=== PATIENT | female | born 1995 | race Two or more races ===

== ENCOUNTER 2023-10-18 18:06 | Inpatient (IN) ==
[2023-10-18 18:33] LABS: Appearance Urine Cloudy (Clear); Bacteria Urine Automated None Seen (None Seen); Bilirubin Urine Negative (Negative); Blood Urine Negative (Negative); Cast Urine Automated 0-2 /lpf (0-2); Color Urine Yellow; Glucose Urine UA Negative (Negative); Ketones Urine Trace (Negative); Leukocyte Esterase Urine 2+ (Negative); Nitrite Urine Negative (Negative); Protein Urine Trace (Negative); Specific Gravity Urine 1.018 (1.000-1.030); Urobilinogen Urine Negative (Negative); pH Urine 6.5 (4.5-7.5)
[2023-10-18 18:47] LABS: Basophils # (auto) 0.01 K/uL (0.00-0.20); Basophils % (auto) 0.1 %; Eosinophils # (auto) 0.01 K/uL (0.00-0.50); Eosinophils % (auto) 0.1 %; Hematocrit (blood only) 35.8 % (37.0-47.0); Hemoglobin 10.8 g/dl (12.0-16.0); Immature Granulocytes # (auto) 0.04 K/uL (0.01-0.20); Immature Granulocytes % (auto) 0.4 %; Lymphocytes # (auto) 0.76 K/uL (1.20-3.40); Lymphocytes % (auto) 8.1 %; Mean Corpuscular Hemoglobin 22.2 pg (25.0-34.0); Mean Corpuscular Hgb Conc 30.2 g/dL (32.0-36.0); Mean Corpuscular Volume 73.5 fL (80.0-100.0); Monocytes % (auto) 6.4 %; Neutrophils # (auto) 7.93 K/uL (1.40-6.50); Neutrophils % (auto) 84.9 %; Platelet Count 225 K/uL (130-400); RDW Standard Deviation 45.1 fL (36.4-46.3); Red Blood Count 4.87 M/uL (4.20-5.40); White Blood Count 9.35 K/ul (4.8-10.8)
[2023-10-18 19:01] LABS: Pregnancy Test, Serum Negative (Negative)
[2023-10-18 19:07] LABS: Alanine Aminotransferase 6 U/L (7-52); Albumin Globulin Ratio 1.3 (0.9-2); Albumin Level 4.3 gm/dl (3.4-5.0); Alkaline Phosphatase 102 U/L (34-104); Anion Gap 7 (3-11); Aspartate Aminotransferase 12 U/L (13-39); BUN Creatinine Ratio 10.9 (10-20); Bilirubin,Total 0.9 mg/dl (0.2-1.0); Blood Urea Nitrogen 7 mg/dl (6-23); Calcium 9.4 mg/dl (8.6-10.3); Carbon Dioxide 24 mmol/L (21-32); Chloride 103 mmol/L (98-107); Creatinine Clr Calc Pharmacy 133.9 ml/min; Est GFR (African American) 138.8 ml/min; Est GFR (Non-African American) 119.7 ml/min; Globulin 3.3 gm/dl (2.5-4.0); Glucose 110 mg/dl (70-99(Fasting)); Lipase 3 U/L (11-82); Potassium 3.4 mmol/L (3.5-5.1); Sodium 134 mmol/L (136-145); Total Protein 7.6 gm/dl (6.0-8.3)
[2023-10-18] MEDS: ONDANSETRON INJ 2 MG/ML 2 ML VIAL IV STA ×2 (19:08→20:18)
[2023-10-18] MEDS: SODIUM CHLORIDE 0.9% 1,000 ML IV ONE ×2 (19:08→21:24)
[2023-10-18 19:09] LABS: Troponin I High Sensitivity < 2.3 pg/ml (0-14)
[2023-10-18 19:12] LABS: INR 1.1 (0.9-1.1); Prothrombin Time 12.3 Seconds (9.0-12.0)
--- NOTE | 2023-10-18 20:00 | XRay Report ---
KUB HISTORY: Generalized abdominal pain. COMPARISON: Abdomen and pelvis CT 10/17/2023. FINDINGS: The bowel gas pattern is unremarkable. There are no dilated loops of small bowel to suggest an obstruction. No renal calculi. No ureteral calculi. No pneumoperitoneum or pneumatosis. Mild-to- moderate fecal retention. IMPRESSION: 1. Nonobstructive bowel gas pattern. 2. [id number] fecal retention. ACT 112: Negative or not required by law. Electronically signed by: Jason Henning M.D. 10/18/2023 7:57 PM
--- NOTE | 2023-10-18 20:13 | Emergency Department Note ---
Impression & Plan Intractable abdominal pain ED Provider Note HISTORY OF PRESENT ILLNESS: Patient is a 28-year-old female presenting with abdominal pain. Her cousin over the phone acts as talent development consultant. Patient refused official talent development consultant, as she reports she speaks [place] and the talent development consultant does not work for her. Cousin on the phone reports the patient has been having abdominal pain for the last 3 days. She was seen in the emergency department last night and the pain has gotten significantly worse. She has not had a bowel movement in 12 to 13 days. She has been taking oxycodone every 8 hours for the last 3 days with minimal relief in her symptoms. Reports nausea and multiple episodes of vomiting. She has had 3 sections but no other abdominal surgical history. No reported fevers, but she reportedly has been having subjective chills. No dysuria or hematuria. ROS: as above PHYSICAL EXAM: Constitutional: Patient appears in no acute distress. HENT: Head: Normocephalic and atraumatic. Eyes: EOMI, PERRL Mouth/Throat: Mucous membranes moist. Neck: Trachea midline. Neck supple. Cardiovascular: Tachycardic with regular rhythm. No murmurs, rubs or gallops. Intact distal pulses. Pulmonary/Chest: No respiratory distress. Breath sounds clear and equal bilaterally. No wheezes or rales. Abdominal: Abdomen soft, no rebound or guarding. Diffuse tenderness to palpation. Musculoskeletal: No edema, tenderness or deformity noted. Skin: Warm and dry. No rash, erythema, pallor or cyanosis Psychiatric: Appropriate mood and affect for situation. Neurological: Alert and keenly responsive. CN II-XII grossly intact, moving all extremities equally and fully. MDM: - Vitals signs showed tachycardia. - History obtained via patient via her cousin. History as above. - Chronic conditions affecting care: Depression/anxiety - Differential diagnoses include, but are not limited to: Small bowel obstruction; constipation; cholecystitis; appendicitis; UTI; ureteral stone - Order placed for continuous cardiac monitoring. At this time, monitor showed rate of 99 bpm with normal sinus rhythm, per my interpretation. - External medical records reviewed. Patient CT imaging from yesterday was reviewed. Patient had a negative CT read per radiology. - Laboratory workup interpreted by myself showed normal WBC; normal PT; slight hypokalemia (K 3.4); normal lactate; normal troponin; normal lipase; negative hCG - CXR negative for pneumonia, per my interpretation - KUB negative for acute obstructive gas pattern. - UA negative for infection - Did discuss with the patient that she had normal workup yesterday including blood work and CT imaging. She states that "something must be wrong." Did discuss that there was really no clinical utility of a repeat CT imaging and would increase her risk of radiation exposure. However, the patient is reporting that her pain is worse and she would like imaging done. - CT abdomen/pelvis showed complex cystic structures within both adnexa which are stable compared to prior exam. - Patient was given 4 mg IV toradol and 1L NS on initial assessment. She was complaining of significant pain and further nausea and given 4 mg IV Zofran and 30 mg IV Toradol and additional 1 L normal saline. - Discussed results with the patient. Discussed plan for discharge home, but she reports that she is still having significant pain. She reports significant concern about going home after not having a bowel movement for 12 to 14 days. Discussed that she could try [id number] laxatives, but she states "these do not work." She is requesting admission for observation and "further testing." - Discussion was had with ed case manager about patient's case and need for admission - Hospitalist, Dr. Olivo, consulted for admission - Patient admitted to [facility] for further evaluation and management. ASSESSMENT AND PLAN: Diagnosis: Intractable abdominal pain Plan: Discharge Past Med/Surg History Problem List (Updated 10/18/23 @ 22:03 by Karen Worthington MD) Intractable abdominal pain (Acute) Abdominal pain (Acute) Psychosocial stressors Heartburn PTSD (post-traumatic stress disorder) Flank pain RUQ abdominal pain Yeast infection Ovarian cyst Vulvar itching Dysuria Routine gynecological examination Rib pain on left side Menorrhagia Pelvic pain LLQ abdominal pain Nausea Dental infection Toenail torn away GERD (gastroesophageal reflux disease) Back pain Depression with anxiety Medical History Infected tooth Miscarriage Depression Surgical History H/O section x3 Family History Father Myocardial infarction Mother Stomach pain FH: mental illness Denies family history of Ovarian cancer Prostate cancer Breast cancer Colorectal cancer Social History Smoking Status: Never smoker Second Hand Exposure: No; Do You Dip or Chew Tobacco: No; Hx Alcohol Use: No Hx Substance Use: No Preferred Language: Wolof Communication Tools: IPad marital status: Current Living Situation: Significant Other Current Living Situation Comment: x4 children current occupational status: unemployed Feels Safe at Home: Yes Diet: regular caffeine: Yes Dental Care, Regularly: No Seatbelt Use: always Sunscreen Use: No Gender Identity: Female Allergies Allergies Allergy/AdvReac Type Severity Reaction Status Date / Time capsuled medicine AdvReac Intermediate UPSETS Uncoded 10/17/23 01:03 STOMACH Home Meds Home Medications Medication Instructions Recorded Confirmed acetaminophen 500 mg tablet 500 - 1,000 mg PO Q6H PRN Pain 10/17/23 10/18/23 (Tylenol Extra Strength) oxycodone 5 mg tablet 0 mg PO DIRECTED PRN Pain 10/18/23 10/18/23 Previous Rx's Medication Instructions Recorded cefdinir 300 mg capsule 300 mg PO BID 5 days #10 caps 10/17/23 Results & Data (ED) Vital Signs Vital Signs - 24 hr 10/18/23 18:11 10/18/23 18:21 10/18/23 18:21 Temperature 37.2 C Temperature Source Oral Pulse Rate 117 H 115 H 111 H Pulse Rate from SpO2 Sensor 112 H Respiratory Rate 20 31 H Respiratory Effort / Characteristics Non-Labored Respiratory Depth Normal Blood Pressure 138/85 Blood Pressure Mean 102 Pulse Oximetry 95 95 Oxygen Delivery Method Room Air Sepsis Recent Fever Within 48 Hours No Sepsis New/Unexplained Change in Mental Status No Sepsis Action Taken by Nursing No Action Required 10/18/23 18:27 10/18/23 18:30 10/18/23 18:30 Temperature Temperature Source Pulse Rate 118 H Pulse Rate from SpO2 Sensor 117 H Respiratory Rate 30 H Respiratory Effort / Characteristics Respiratory Depth Blood Pressure 145/89 H 145/89 H Blood Pressure Mean 118 118 Pulse Oximetry 97 Oxygen Delivery Method Sepsis Recent Fever Within 48 Hours Sepsis New/Unexplained Change in Mental Status Sepsis Action Taken by Nursing 10/18/23 18:46 10/18/23 18:54 10/18/23 18:57 Temperature Temperature Source Pulse Rate 114 H 115 H Pulse Rate from SpO2 Sensor 114 H 118 H Respiratory Rate 26 H 28 H Respiratory Effort / Characteristics Respiratory Depth Blood Pressure Blood Pressure Mean Pulse Oximetry 98 98 97 Oxygen Delivery Method Room Air Sepsis Recent Fever Within 48 Hours Sepsis New/Unexplained Change in Mental Status Sepsis Action Taken by Nursing 10/18/23 19:00 10/18/23 19:00 10/18/23 19:18 Temperature Temperature Source Pulse Rate 110 H Pulse Rate from SpO2 Sensor 109 H Respiratory Rate 19 Respiratory Effort / Characteristics Respiratory Depth Blood Pressure 133/80 133/80 Blood Pressure Mean 98 98 Pulse Oximetry 99 Oxygen Delivery Method Sepsis Recent Fever Within 48 Hours Sepsis New/Unexplained Change in Mental Status Sepsis Action Taken by Nursing 10/18/23 19:30 10/18/23 20:24 10/18/23 20:27 Temperature Temperature Source Pulse Rate 118 H 108 H 118 H Pulse Rate from SpO2 Sensor 117 H 110 H 116 H Respiratory Rate 29 H 24 24 Respiratory Effort / Characteristics Respiratory Depth Blood Pressure Blood Pressure Mean Pulse Oximetry 96 96 96 Oxygen Delivery Method Sepsis Recent Fever Within 48 Hours Sepsis New/Unexplained Change in Mental Status Sepsis Action Taken by Nursing 10/18/23 20:30 10/18/23 20:30 10/18/23 20:33 Temperature Temperature Source Pulse Rate 111 H Pulse Rate from SpO2 Sensor 111 H Respiratory Rate 20 Respiratory Effort / Characteristics Respiratory Depth Blood Pressure 123/72 123/72 Blood Pressure Mean 86 86 Pulse Oximetry 97 Oxygen Delivery Method Sepsis Recent Fever Within 48 Hours Sepsis New/Unexplained Change in Mental Status Sepsis Action Taken by Nursing 10/18/23 21:03 10/18/23 21:06 Temperature Temperature Source Pulse Rate 99 H Pulse Rate from SpO2 Sensor 99 H Respiratory Rate 24 Respiratory Effort / Characteristics Respiratory Depth Blood Pressure 115/76 Blood Pressure Mean 82 Pulse Oximetry 98 Oxygen Delivery Method Sepsis Recent Fever Within 48 Hours Sepsis New/Unexplained Change in Mental Status Sepsis Action Taken by Nursing Laboratory Data 10/18/23 18:27 10/18/23 18:27 Lab Results 10/18/23 10/18/23 10/18/23 Range/Units 18:20 18:27 18:56 WBC 9.35 (4.8-10.8) K/ul RBC 4.87 (4.20-5.40) M/uL Hgb 10.8 L (12.0-16.0) g/dl Hct 35.8 L (37.0-47.0) % MCV 73.5 L (80.0-100.0) fL MCH 22.2 L (25.0-34.0) pg MCHC 30.2 L (32.0-36.0) g/dL RDW Std Deviation 45.1 (36.4-46.3) fL RDW Coeff of Sheree 17.0 H (11.5-14.5) % Plt Count 225 (130-400) K/uL MPV 9.0 L (9.4-12.4) fL Immature Gran % (Auto) 0.4 % Neut % (Auto) 84.9 % Lymph % (Auto) 8.1 % [place] % (Auto) 6.4 % Eos % (Auto) 0.1 % Baso % (Auto) 0.1 % Neut # (Auto) 7.93 H (1.40-6.50) K/uL Lymph # (Auto) 0.76 L (1.20-3.40) K/uL [place] # (Auto) 0.60 H (0.11-0.59) K/uL Eos # (Auto) 0.01 (0.00-0.50) K/uL Baso # (Auto) 0.01 (0.00-0.20) K/uL Immature Gran # (Auto) 0.04 (0.01-0.20) K/uL PT 12.3 H (9.0-12.0) Seconds INR 1.1 (0.9-1.1) Sodium 134 L (136-145) mmol/L Potassium 3.4 L (3.5-5.1) mmol/L Chloride 103 (98-107) mmol/L Carbon Dioxide 24 (21-32) mmol/L Anion Gap 7 (3-11) BUN 7 (6-23) mg/dl Creatinine 0.64 (0.6-1.2) mg/dl Est Cr Clr Drug Dosing 133.9 ml/min Est GFR ( Amer) 138.8 ml/min Est GFR (Non-Af Amer) 119.7 ml/min BUN/Creatinine Ratio 10.9 (10-20) Glucose 110 H (70-99(Fasting)) mg/dl Lactate 1.4 (0.4-2.0) mmol/L Calcium 9.4 (8.6-10.3) mg/dl Total Bilirubin 0.9 D (0.2-1.0) mg/dl AST 12 L (13-39) U/L ALT 6 L (7-52) U/L Alkaline Phosphatase 102 (34-104) U/L Troponin I High Sens < 2.3 (0-14) pg/ml Total Protein 7.6 (6.0-8.3) gm/dl Albumin 4.3 (3.4-5.0) gm/dl Globulin 3.3 (2.5-4.0) gm/dl Albumin/Globulin Ratio 1.3 (0.9-2) Lipase 3 L (11-82) U/L HCG, Qual Negative (Negative) Urine Color Yellow Urine Appearance Cloudy A (Clear) Urine pH 6.5 (4.5-7.5) Ur Specific [place] 1.018 (1.000-1.030) Urine Protein Trace H (Negative) Urine Glucose (UA) Negative (Negative) Urine Ketones Trace H (Negative) Urine Blood Negative (Negative) Urine Nitrite Negative (Negative) Urine Bilirubin Negative (Negative) Urine Urobilinogen Negative (Negative) Ur Leukocyte Esterase 2+ H (Negative) Urine WBC (Auto) 11-20 H (0-5) /hpf Urine RBC (Auto) 3-5 H (0-2) /hpf U Hyaline Cast (Auto) 0-2 (0-2) /lpf U Epithel Cells (Auto) 6-10 H (0-2) /hpf Urine Bacteria (Auto) None Seen (None Seen) Administered Medications Discontinued Medications Sodium Chloride (Nss) 1,000 mls @ 999 mls/hr IV .Q1H1M ONE Stop: 10/18/23 20:03 Last Infusion: 10/18/23 21:25 Dose: Infused Documented By: Admin: 10/18/23 19:08 Dose: 999 mls/hr Documented By: ROMANA Sodium Chloride (Nss) 1,000 mls @ 999 mls/hr IV .Q1H1M ONE Stop: 10/18/23 21:11 Last Admin: 10/18/23 21:24 Dose: 999 mls/hr Documented By: ROMANA Ioversol (Optiray 320 100ml) 92 ml IV ONCE ONE Stop: 10/18/23 20:56 Last Admin: 10/18/23 20:55 Dose: 92 ml Documented By: JUAN Ketorolac Tromethamine (Ketorolac 30 Mg/Ml Vial) 30 mg IV NOW ONE Stop: 10/18/23 20:12 Last Admin: 10/18/23 20:18 Dose: 30 mg Documented By: ROMANA Ondansetron HCl (Ondansetron Inj 2 Mg/Ml 2 Ml Vial) 4 mg IV NOW STA Stop: 10/18/23 19:04 Last Admin: 10/18/23 19:08 Dose: 4 mg Documented By: ROMANA Ondansetron HCl (Ondansetron Inj 2 Mg/Ml 2 Ml Vial) 4 mg IV NOW STA Stop: 10/18/23 20:12 Last Admin: 10/18/23 20:18 Dose: 4 mg Documented By: ROMANA Imaging Data Radiologist's Impression: KUB X-Ray 10/18/23 19:03 KUB HISTORY: Generalized abdominal pain. COMPARISON: Abdomen and pelvis CT 10/17/2023. FINDINGS: The bowel gas pattern is unremarkable. There are no dilated loops of small bowel to suggest an obstruction. No renal calculi. No ureteral calculi. No pneumoperitoneum or pneumatosis. Pjeu-yi-evwwdgrj fecal retention. IMPRESSION: 1. Nonobstructive bowel gas pattern. 2. Wwqd-sm-vmjwsubr fecal retention. ACT 112: Negative or not required by law. Electronically signed by: Jason Henning M.D. 10/18/2023 7:57 PM Abdomen/Pelvis CT 10/18/23 20:30 Exam(s): CT ABDOMEN + PELVIS With Contrast IV Amt: 92 ml optiray 320 EXAM: CT Abdomen and Pelvis With Intravenous Contrast CLINICAL HISTORY: Reason for exam: diffuse abdominal pain. TECHNIQUE: Axial computed tomography images of the abdomen and pelvis with intravenous contrast. Automated exposure control was utilized for the study. A dose lowering technique was utilized adhering to the principles of ALARA. CONTRAST: Patient received 92 ml optiray 320 of IV contrast COMPARISON: 10/17/2023 FINDINGS: Lung bases: Unremarkable. No mass. No consolidation. ABDOMEN: Liver: Unremarkable. No mass. Gallbladder and bile ducts: Unremarkable. No calcified stones. No ductal dilation. Pancreas: Unremarkable. No mass. No ductal dilation. Spleen: Unremarkable. No splenomegaly. Adrenals: Unremarkable. No mass. Kidneys and ureters: Unremarkable. No solid mass. No hydronephrosis. Stomach and bowel: Unremarkable. No obstruction. No mucosal thickening. PELVIS: Appendix: Normal appearing retrocecal appendix is identified on this exam. Bladder: Unremarkable. No mass. Reproductive: 2.4 x 4.1 cm complex cystic structure with multiple tubular area seen within the left adnexa with a small amount of left pelvic and left adnexal fluid. Stable appearance to 4.6 x 2.5 cm multiloculated right ovarian cyst. Interval improvement in trace pelvic fluid ABDOMEN and PELVIS: Intraperitoneal space: . No free air. Bones/joints: No acute fracture. No dislocation. Soft tissues: Unremarkable. Vasculature: Unremarkable. No abdominal aortic aneurysm. Lymph nodes: Unremarkable. No enlarged lymph nodes. IMPRESSION: Complex cystic structures within both adnexa. These are essentially stable when compared with the prior exam with interval reduction in overall amount of fluid within the dependent pelvis. Findings indeterminate pelvic ultrasound recommended for further evaluation. Electronically signed by: Bradford Ding MD 10/18/23 21:14 PM Discharge Plan Visit Data Chief Complaint: Abdominal Pain Stated Complaint: AB PAIN, NAUSEA ED Provider: Karen Worthington Discharge Problem: Intractable abdominal pain Forms Stand Alone Forms: [facility] [employer] Prescriptions Prescriptions: No Action acetaminophen [Tylenol Extra Strength] 500 mg Tablet 500 - 1,000 mg PO Q6H PRN (Reason: Pain) cefdinir 300 mg capsule 300 mg PO BID 5 Days Qty: 10 0RF oxycodone 5 mg Tablet 0 mg PO DIRECTED PRN (Reason: Pain) Referrals Referrals: PCP,NO [Primary Care Provider] -
[2023-10-18] MEDS: KETOROLAC 30 MG/ML VIAL IV ONE (20:18)
[2023-10-18] MEDS: OPTIRAY 320 100ml IV ONE (20:55)
--- NOTE | 2023-10-18 21:15 | CT Scan Report ---
Exam(s): CT ABDOMEN + PELVIS With Contrast IV Amt: 92 ml optiray 320 EXAM: CT Abdomen and Pelvis With Intravenous Contrast CLINICAL HISTORY: Reason for exam: diffuse abdominal pain. TECHNIQUE: Axial computed tomography images of the abdomen and pelvis with intravenous contrast. Automated exposure control was utilized for the study. A dose lowering technique was utilized adhering to the principles of ALARA. CONTRAST: Patient received 92 ml optiray 320 of IV contrast COMPARISON: 10/17/2023 FINDINGS: Lung bases: Unremarkable. No mass. No consolidation. ABDOMEN: Liver: Unremarkable. No mass. Gallbladder and bile ducts: Unremarkable. No calcified stones. No ductal dilation. Pancreas: Unremarkable. No mass. No ductal dilation. Spleen: Unremarkable. No splenomegaly. Adrenals: Unremarkable. No mass. Kidneys and ureters: Unremarkable. No solid mass. No hydronephrosis. Stomach and bowel: Unremarkable. No obstruction. No mucosal thickening. PELVIS: Appendix: Normal appearing retrocecal appendix is identified on this exam. Bladder: Unremarkable. No mass. Reproductive: 2.4 x 4.1 cm complex cystic structure with multiple tubular area seen within the left adnexa with a small amount of left pelvic and left adnexal fluid. Stable appearance to 4.6 x 2.5 cm multiloculated right ovarian cyst. Interval improvement in trace pelvic fluid ABDOMEN and PELVIS: Intraperitoneal space: . No free air. Bones/joints: No acute fracture. No dislocation. Soft tissues: Unremarkable. Vasculature: Unremarkable. No abdominal aortic aneurysm. Lymph nodes: Unremarkable. No enlarged lymph nodes. IMPRESSION: Complex cystic structures within both adnexa. These are essentially stable when compared with the prior exam with interval reduction in overall amount of fluid within the dependent pelvis. Findings indeterminate pelvic ultrasound recommended for further evaluation. Electronically signed by: Bradford Ding MD 10/18/23 21:14 PM
[2023-10-18] MEDS: NSS + 20MEQ KCL 20 MEQ/1,000 ML BAG IV ONE (22:23)
[2023-10-18] MEDS: POLYETHYLENE (MIRALAX) 17 GM PACK PO STA (22:26)
[2023-10-18] MEDS: cefTRIAXone SODIUM 2,000 MG/50 ML BAG IV STA (22:26)
[2023-10-18] MEDS: LACTULOSE SYRUP 30 GM/45 ML UDP PO STA (22:27)
[2023-10-18] MEDS: DOCUSATE SODIUM/SENNA 50/8.6MG TAB PO STA (22:27)
--- NOTE | 2023-10-18 22:51 | History & Physical Report ---
Date of Service October 18, 2023 Assessment & Plan (1) Abdominal pain: Plan: Multifactorial: Persistent cystitis (gram-negative judy bacilli from preliminary urine CS from recent ER visit), no sepsis for now Obstipation (fecal retention noted on plain imaging) Anxiety contributory chronic anemia, hemoglobin at baseline Hyperglycemia rule out DM (baseline hemoglobin 10-11) OBS GMF Follow urine CS, Ciprofloxacin for now Bowel regimen, manual fecal disimpaction if without response to medications. Anxiolytic as needed Check hemoglobin A1c DVT prophylaxis. SCDs Full code Patient cousin requesting updates providers. Miss Brigitte Levi, contact number [phone]. Text document was generated using [employer] voice recognition software. It may contain grammatical or spelling errors. Kindly contact undersigned for clarification of any documentation item in question. History of Present Illness Chief Complaint: Abdominal pain, obstipation Primary Care Provider: Dr. Dawn History obtained from patient, family, and records. History somewhat limited from patient secondary to language barrier. Medical history significant for chronic anemia (baseline hemoglobin 10-11), anxiety disorder. 5 days ago, patient noted achy lower abdominal pain. No BM for more than a week as per patient which is unusual for her. Patient seen at the ER 2 days ago. Patient prescribed cefdinir for possible UTI. Worsening discomfort at home with nausea and emesis despite compliance with anti biotic. Persistent dysuria symptoms without hematuria. Chest pain and SOB attributed to abdominal pain as per patient Some chills. Patient returned to ER for evaluation. Medical History as above Surgical History : section Family History : DM Personal/Social history : Non-smoker, no EtOH intake, homemaker Allergies Allergy/AdvReac Type Severity Reaction Status Date / Time capsuled medicine AdvReac Intermediate UPSETS Uncoded 10/17/23 01:03 STOMACH Home Medications Medication Instructions Recorded Confirmed Type acetaminophen 500 mg tablet 500 - 1,000 mg PO Q6H PRN Pain 10/17/23 10/18/23 History (Tylenol Extra Strength) cefdinir 300 mg capsule 300 mg PO BID 5 days #10 caps 10/17/23 10/18/23 Rx oxycodone 5 mg tablet 0 mg PO DIRECTED PRN Pain 10/18/23 10/18/23 History Past Med/Surg History Problem List (Updated 10/18/23 @ 22:03 by Karen Worthington MD) Intractable abdominal pain (Acute) Abdominal pain (Acute) Psychosocial stressors Heartburn PTSD (post-traumatic stress disorder) Flank pain RUQ abdominal pain Yeast infection Ovarian cyst Vulvar itching Dysuria Routine gynecological examination Rib pain on left side Menorrhagia Pelvic pain LLQ abdominal pain Nausea Dental infection Toenail torn away GERD (gastroesophageal reflux disease) Back pain Depression with anxiety Medical History Infected tooth Miscarriage Depression Surgical History H/O section x3 Family History Father Myocardial infarction Mother Stomach pain FH: mental illness Denies family history of Ovarian cancer Prostate cancer Breast cancer Colorectal cancer Social History Smoking Status: Never smoker Second Hand Exposure: No; Do You Dip or Chew Tobacco: No; Hx Alcohol Use: No Hx Substance Use: No Preferred Language: Other Communication Ability: Impaired Communication Ability Comment: cousin helps translate if needed over the phone Communication Tools: IPad 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 Beliefs That Will Affect Care: None marital status: Current Living Situation: Family Current Living Situation Comment: x4 children current occupational status: unemployed Feels Safe at Home: Yes Safety Concerns: Feels Safe At This Time Diet: regular caffeine: Yes Dental Care, Regularly: No Seatbelt Use: always Sunscreen Use: No Gender Identity: Female Assistive Devices: None Review of Systems Review of Systems: Could not be reliably obtained secondary to language barrier Physical Exam Physical Exam: GENERAL: Comfortable, Slightly anxious,no respiratory distress SKIN: Pallor, warm HEENT: Pale palpebral conjunctivae, no ptosis, dry buccal mucosa NECK : Supple, no tenderness CHEST : CTA, no tenderness HEART : RRR, no obvious murmurs ABDOMEN: Some distention, hypogastric tenderness EXTREMITIES : No LE swelling/tenderness, no other conspicuous deformities noted NEUROLOGIC : Coherent, no facial asymmetry, no other gross focality Results & Data Results & Data Vital Signs (Past 12 Hours) Vital Signs Temp Pulse Resp BP Pulse Ox O2 Del Method 10/18/23 21:06 115/76 10/18/23 21:03 99 H 24 98 10/18/23 20:33 111 H 20 97 10/18/23 20:30 123/72 10/18/23 20:30 123/72 10/18/23 20:27 118 H 24 96 10/18/23 20:24 108 H 24 96 10/18/23 19:30 118 H 29 H 96 10/18/23 19:18 110 H 19 99 10/18/23 19:00 133/80 10/18/23 19:00 133/80 10/18/23 18:57 115 H 28 H 97 10/18/23 18:54 114 H 26 H 98 10/18/23 18:46 98 Room Air 10/18/23 18:30 145/89 H 10/18/23 18:30 145/89 H 10/18/23 18:27 118 H 30 H 97 10/18/23 18:21 111 H 31 H 95 10/18/23 18:21 115 H 10/18/23 18:11 37.2 C 117 H 20 138/85 95 Room Air Laboratory Results Laboratory Results WBC 9.35 K/ul (4.8-10.8) 10/18/23 18: RBC 4.87 M/uL (4.20-5.40) 10/18/23 18: Hgb 10.8 g/dl (12.0-16.0) L 10/18/23 18: Hct 35.8 % (37.0-47.0) L 10/18/23 18: MCV 73.5 fL (80.0-100.0) L 10/18/23 18: MCH 22.2 pg (25.0-34.0) L 10/18/23 18: MCHC 30.2 g/dL (32.0-36.0) L 10/18/23 18: RDW Std Deviation 45.1 fL (36.4-46.3) 10/18/23 18: RDW Coeff of Sheree 17.0 % (11.5-14.5) H 10/18/23 18:27 Plt Count 225 K/uL (130-400) 10/18/23 18: MPV 9.0 fL (9.4-12.4) L 10/18/23 18: Immature Gran % (Auto) 0.4 % 10/18/23 18:27 Neut % (Auto) 84.9 % 10/18/23 18: Lymph % (Auto) 8.1 % 10/18/23 18: [place] % (Auto) 6.4 % 10/18/23 18: Eos % (Auto) 0.1 % 10/18/23 18:27 Baso % (Auto) 0.1 % 10/18/23 18: Neut # (Auto) 7.93 K/uL (1.40-6.50) H 10/18/23 18: Lymph # (Auto) 0.76 K/uL (1.20-3.40) L 10/18/23 18: [place] # (Auto) 0.60 K/uL (0.11-0.59) H 10/18/23 18: Eos # (Auto) 0.01 K/uL (0.00-0.50) 10/18/23 18: Baso # (Auto) 0.01 K/uL (0.00-0.20) 10/18/23 18: Immature Gran # (Auto) 0.04 K/uL (0.01-0.20) 10/18/23 18: PT 12.3 Seconds (9.0-12.0) H 10/18/23 18: INR 1.1 (0.9-1.1) 10/18/23 18: Sodium 134 mmol/L (136-145) L 10/18/23 18: Potassium 3.4 mmol/L (3.5-5.1) L 10/18/23 18: Chloride 103 mmol/L (98-107) 10/18/23 18: Carbon Dioxide 24 mmol/L (21-32) 10/18/23 18: Anion Gap 7 (3-11) 10/18/23 18: BUN 7 mg/dl (6-23) 10/18/23 18: Creatinine 0.64 mg/dl (0.6-1.2) 10/18/23 18: Est Cr Clr Drug Dosing 133.9 ml/min 10/18/23 18:27 Est GFR ( Amer) 138.8 ml/min 10/18/23 18: Est GFR (Non-Af Amer) 119.7 ml/min 10/18/23 18:27 BUN/Creatinine Ratio 10.9 (10-20) 10/18/23 18:27 Glucose 110 mg/dl (70-99(Fasting)) H 10/18/23 18:27 Lactate 1.4 mmol/L (0.4-2.0) 10/18/23 18:56 Calcium 9.4 mg/dl (8.6-10.3) 10/18/23 18:27 Total Bilirubin 0.9 mg/dl (0.2-1.0) D 10/18/23 18:27 AST 12 U/L (13-39) L 10/18/23 18:27 ALT 6 U/L (7-52) L 10/18/23 18:27 Alkaline Phosphatase 102 U/L (34-104) 10/18/23 18:27 Troponin I High Sens < 2.3 pg/ml (0-14) 10/18/23 18:27 Total Protein 7.6 gm/dl (6.0-8.3) 10/18/23 18:27 Albumin 4.3 gm/dl (3.4-5.0) 10/18/23 18:27 Globulin 3.3 gm/dl (2.5-4.0) 10/18/23 18: Albumin/Globulin Ratio 1.3 (0.9-2) 10/18/23 18:27 Lipase 3 U/L (11-82) L 10/18/23 18:27 HCG, Qual Negative (Negative) 10/18/23 18:27 Urine Color Yellow 10/18/23 18:20 Urine Appearance Cloudy (Clear) A 10/18/23 18:20 Urine pH 6.5 (4.5-7.5) 10/18/23 18:20 Ur Specific [place] 1.018 (1.000-1.030) 10/18/23 18:20 Urine Protein Trace (Negative) H 10/18/23 18:20 Urine Glucose (UA) Negative (Negative) 10/18/23 18:20 Urine Ketones Trace (Negative) H 10/18/23 18:20 Urine Blood Negative (Negative) 10/18/23 18:20 Urine Nitrite Negative (Negative) 10/18/23 18:20 Urine Bilirubin Negative (Negative) 10/18/23 18:20 Urine Urobilinogen Negative (Negative) 10/18/23 18:20 Ur Leukocyte Esterase 2+ (Negative) H 10/18/23 18:20 Urine WBC (Auto) 11-20 /hpf (0-5) H 10/18/23 18:20 Urine RBC (Auto) 3-5 /hpf (0-2) H 10/18/23 18:20 U Hyaline Cast (Auto) 0-2 /lpf (0-2) 10/18/23 18:20 U Epithel Cells (Auto) 6-10 /hpf (0-2) H 10/18/23 18:20 Urine Bacteria (Auto) None Seen (None Seen) 10/18/23 18:20 Impressions KUB X-Ray 10/18/23 19:03 KUB HISTORY: Generalized abdominal pain. COMPARISON: Abdomen and pelvis CT 10/17/2023. FINDINGS: The bowel gas pattern is unremarkable. There are no dilated loops of small bowel to suggest an obstruction. No renal calculi. No ureteral calculi. No pneumoperitoneum or pneumatosis. Uocy-gr-opdgmbgz fecal retention. IMPRESSION: 1. Nonobstructive bowel gas pattern. 2. Ulko-al-kwakjskd fecal retention. ACT 112: Negative or not required by law. Electronically signed by: Jason Henning M.D. 10/18/2023 7:57 PM Abdomen/Pelvis CT 10/18/23 20:30 Exam(s): CT ABDOMEN + PELVIS With Contrast IV Amt: 92 ml optiray 320 EXAM: CT Abdomen and Pelvis With Intravenous Contrast CLINICAL HISTORY: Reason for exam: diffuse abdominal pain. TECHNIQUE: Axial computed tomography images of the abdomen and pelvis with intravenous contrast. Automated exposure control was utilized for the study. A dose lowering technique was utilized adhering to the principles of ALARA. CONTRAST: Patient received 92 ml optiray 320 of IV contrast COMPARISON: 10/17/2023 FINDINGS: Lung bases: Unremarkable. No mass. No consolidation. ABDOMEN: Liver: Unremarkable. No mass. Gallbladder and bile ducts: Unremarkable. No calcified stones. No ductal dilation. Pancreas: Unremarkable. No mass. No ductal dilation. Spleen: Unremarkable. No splenomegaly. Adrenals: Unremarkable. No mass. Kidneys and ureters: Unremarkable. No solid mass. No hydronephrosis. Stomach and bowel: Unremarkable. No obstruction. No mucosal thickening. PELVIS: Appendix: Normal appearing retrocecal appendix is identified on this exam. Bladder: Unremarkable. No mass. Reproductive: 2.4 x 4.1 cm complex cystic structure with multiple tubular area seen within the left adnexa with a small amount of left pelvic and left adnexal fluid. Stable appearance to 4.6 x 2.5 cm multiloculated right ovarian cyst. Interval improvement in trace pelvic fluid ABDOMEN and PELVIS: Intraperitoneal space: . No free air. Bones/joints: No acute fracture. No dislocation. Soft tissues: Unremarkable. Vasculature: Unremarkable. No abdominal aortic aneurysm. Lymph nodes: Unremarkable. No enlarged lymph nodes. IMPRESSION: Complex cystic structures within both adnexa. These are essentially stable when compared with the prior exam with interval reduction in overall amount of fluid within the dependent pelvis. Findings indeterminate pelvic ultrasound recommended for further evaluation. Electronically signed by: Bradford Ding MD 10/18/23 21:14 PM (1) Abdominal pain Abdominal location: lower abdomen, unspecified Qualified Code(s): R10.30 - Lower abdominal pain, unspecified
[2023-10-18] MEDS ORDERED: POLYETHYLENE (MIRALAX) 17 GM PACK PO PRN (22:56)
[2023-10-18] MEDS ORDERED: LORazepam 0.5 MG TAB PO PRN (22:57)
[2023-10-18] MEDS: CIPROFLOXACIN / D5W 400 MG/200 ML BAG IV STA (23:38)
[2023-10-18 23:39] LABS: Magnesium 1.8 mg/dl (1.7-2.4)
[2023-10-19] MEDS ORDERED: PROMETHAZINE HCL 6.25 MG in SODIUM CHLORIDE 0.9% 50 ML IV PRN (00:41)
[2023-10-19] MEDS: PROMETHAZINE HCL 6.25 MG in SODIUM CHLORIDE 0.9% 50 ML IV STA (01:15)
[2023-10-19] MEDS: ACETAMINOPHEN 1,000 MG/100 ML VIAL IV STA (01:31)
[2023-10-19] MEDS: LACTULOSE SYRUP 30 GM/45 ML UDP PO STA (01:42)
[2023-10-19] MEDS: MAGNESIUM SULFATE / D5W 1 GM/100 ML BAG IV ONE (01:49)
[2023-10-19] MEDS: POTASSIUM CHLORIDE PWD 20 MEQ PACK PO STA (01:51)
--- NOTE | 2023-10-19 06:39 | XRay Report ---
XR chest 1V portable CLINICAL HISTORY: shortness of breath TECHNIQUE: Single frontal radiograph of the chest was obtained. Comparison: Comparison is made to chest radiograph 01/05/2023 FINDINGS: No lines and tubes are seen. The cardiomediastinal silhouette is normal. The lungs are clear. No evid ence of pleural effusion or pneumothorax. IMPRESSION: No acute chest disease. ACT 112: Negative or not required by law. Electronically signed by: Godwin Paulino M.D. 10/19/2023 6:37 AM
[2023-10-19 07:24] LABS: Estimated Average Glucose 117 mg/dl; Hemoglobin A1C 5.7 % (4.5-5.6)
[2023-10-19 07:33] LABS: Basophils # (auto) 0.01 K/uL (0.00-0.20); Basophils % (auto) 0.2 %; Eosinophils # (auto) 0.06 K/uL (0.00-0.50); Eosinophils % (auto) 1.1 %; Hematocrit (blood only) 30.8 % (37.0-47.0); Hemoglobin 9.1 g/dl (12.0-16.0); Immature Granulocytes # (auto) 0.01 K/uL (0.01-0.20); Immature Granulocytes % (auto) 0.2 %; Lymphocytes # (auto) 1.12 K/uL (1.20-3.40); Lymphocytes % (auto) 19.6 %; Mean Corpuscular Hemoglobin 22.1 pg (25.0-34.0); Mean Corpuscular Hgb Conc 29.5 g/dL (32.0-36.0); Mean Corpuscular Volume 74.8 fL (80.0-100.0); Mean Platelet Volume 9.2 fL (9.4-12.4); Monocytes # (auto) 0.56 K/uL (0.11-0.59); Monocytes % (auto) 9.8 %; Neutrophils # (auto) 3.94 K/uL (1.40-6.50); Neutrophils % (auto) 69.1 %; Platelet Count 203 K/uL (130-400); RDW Coefficient of Variation 17.2 % (11.5-14.5); RDW Standard Deviation 46.5 fL (36.4-46.3); Red Blood Count 4.12 M/uL (4.20-5.40)
[2023-10-19 07:51] LABS: Anion Gap 4 (3-11); BUN Creatinine Ratio 12.5 (10-20); Blood Urea Nitrogen 6 mg/dl (6-23); Calcium 8.3 mg/dl (8.6-10.3); Carbon Dioxide 23 mmol/L (21-32); Chloride 113 mmol/L (98-107); Creatinine Clr Calc Pharmacy 183.3 ml/min; Est GFR (African American) > 150.0 ml/min; Est GFR (Non-African American) 131.6 ml/min; Glucose 90 mg/dl (70-99(Fasting)); Potassium 3.8 mmol/L (3.5-5.1); Sodium 140 mmol/L (136-145)
--- NOTE | 2023-10-19 08:10 | Hospitalist Progress Note ---
Date of Service October 19, 2023 Assessment & Plan (1) Pelvic inflammatory disease: (2) Salpingitis: (3) Urinary tract infection due to extended-spectrum beta lactamase (ESBL) producing Escherichia coli: Plan Pt is a 28yoF with PMHx significant for chronic anemia (baseline hemoglobin 10- 11), anxiety disorder presenting once more with concern for lower abdominal pain. Pelvic Inflammatory Disease Salpingitis Complicated UTI Obstipation Pt presented with lower abdominal pain initially on 10/16, was seen in the ED, treated for a UTI and discharged with po cefdinir Urine Cx from that time grew ESBL E coli sensitive to IV ertapenem, zosyn and ciprofloxacin but resistant to rocephin Presenting once more with N/V, persistent dysuria, lower abdominal pain UA this admission suggestive of infection, repeat urine Cx pending CT abd/pelvis from 10/16- unremarkable KUB 10/17- noting mild to moderate fecal retention, repeat after multiple BMs on 10/18 noting small stool burden CT abd/pelvis from 10/17 noting L adnexa complex cystic structure and stable R ovarian cyst. Recommending f/u pelvic US Pelvic US ordered-notes left dilated fallopian tube, findings suggestive of salpingitis/pelvic inflammatory disease Urine test pending IV flagyl and doxycycline added to IV ciprofloxacin for PID/ESBL UTI treatment PATIENT ACCESS consulted, appreciate recs Infectious Disease consulted for further recs Bowel regimen with daily Senokot and scheduled Miralax for constipation Pain control Continue to monitor Hypokalemia K low on admission Replete as needed Chronic Microcytic anemia hgb dropped from 11.5 on 10/16 to 9.1 on admission MCV in the 70s AM anemia panel to rule out iron deficiency anemia Supplement as needed Continue to monitor H/H Prediabetes Hgba1c of 5.7 PCP followup Anxiety Anxiolytic prn Diet: Clears, advance as tolerated DVT prophylaxis. SCDs Dispo: Home once medically stable Admission and Anticipated Discharge Date Admission Date: October 18, 2023 Subjective Pt was seen before going down for imaging. States she is having generalized abd pain but mostly in the lower abdomen/pelvic area. States pain improving. Pr nursing, she had about 10 bowel movements already. Review of Systems Review of Systems: All systems reviewed & are unremarkable except as noted in Subjective Physical Exam Physical Exam: General: Alert, oriented. No acute distress Psych: Appropriate mood and affect Neuro: No gross deficits HEENT: NC/AT CV: RRR Resp: Breath sounds clear bilaterally, no increased effort of breathing. Abdomen: soft, diffusely tender but more painful in lower abdomen Extremities: No edema in lower extremities bilaterally. Results & Data Results & Data Vital Signs (Past 12 Hours) Vital Signs Temp Pulse Pulse Pulse Resp BP BP 10/19/23 07:45 36.5 C 72 13 10/19/23 07:01 36.5 C 84 16 115/76 10/19/23 00:30 37.0 C 95 H 18 131/84 10/18/23 23:30 117/79 10/18/23 23:30 117/79 10/18/23 23:30 108 H 14 10/18/23 23:15 101 H 23 10/18/23 23:00 129/73 10/18/23 23:00 129/73 10/18/23 22:30 103 H 13 10/18/23 22:30 116/74 10/18/23 22:30 116/74 10/18/23 22:22 98 H 10/18/23 22:06 89 17 10/18/23 22:00 126/75 10/18/23 21:54 90 25 H 10/18/23 21:30 92 H 21 10/18/23 21:30 115/79 10/18/23 21:30 115/79 10/18/23 21:18 97 H 19 10/18/23 21:06 115/76 10/18/23 21:03 99 H 24 10/18/23 20:33 111 H 20 10/18/23 20:30 123/72 10/18/23 20:30 123/72 10/18/23 20:27 118 H 24 10/18/23 20:24 108 H 24 BP Pulse Ox O2 Del Method 10/19/23 07:45 108/72 98 Room Air 10/19/23 07:01 98 Room Air 10/19/23 00:30 99 Room Air 10/18/23 23:30 10/18/23 23:30 10/18/23 23:30 10/18/23 23:15 10/18/23 23:00 10/18/23 23:00 10/18/23 22:30 99 10/18/23 22:30 10/18/23 22:30 10/18/23 22:22 10/18/23 22:06 98 10/18/23 22:00 10/18/23 21:54 97 10/18/23 21:30 96 10/18/23 21:30 10/18/23 21:30 10/18/23 21:18 96 10/18/23 21:06 10/18/23 21:03 98 10/18/23 20:33 97 10/18/23 20:30 10/18/23 20:30 10/18/23 20:27 96 10/18/23 20:24 96 Diagnostic Findings KUB X-Ray 10/18/23 19:03 KUB HISTORY: Generalized abdominal pain. COMPARISON: Abdomen and pelvis CT 10/17/2023. FINDINGS: The bowel gas pattern is unremarkable. There are no dilated loops of small bowel to suggest an obstruction. No renal calculi. No ureteral calculi. No pneumoperitoneum or pneumatosis. Upnt-sp-epllvfev fecal retention. IMPRESSION: 1. Nonobstructive bowel gas pattern. 2. Nhhn-zs-kgopglny fecal retention. ACT 112: Negative or not required by law. Electronically signed by: Jason Henning M.D. 10/18/2023 7:57 PM Abdomen/Pelvis CT 10/18/23 20:30 Exam(s): CT ABDOMEN + PELVIS With Contrast IV Amt: 92 ml optiray 320 EXAM: CT Abdomen and Pelvis With Intravenous Contrast CLINICAL HISTORY: Reason for exam: diffuse abdominal pain. TECHNIQUE: Axial computed tomography images of the abdomen and pelvis with intravenous contrast. Automated exposure control was utilized for the study. A dose lowering technique was utilized adhering to the principles of ALARA. CONTRAST: Patient received 92 ml optiray 320 of IV contrast COMPARISON: 10/17/2023 FINDINGS: Lung bases: Unremarkable. No mass. No consolidation. ABDOMEN: Liver: Unremarkable. No mass. Gallbladder and bile ducts: Unremarkable. No calcified stones. No ductal dilation. Pancreas: Unremarkable. No mass. No ductal dilation. Spleen: Unremarkable. No splenomegaly. Adrenals: Unremarkable. No mass. Kidneys and ureters: Unremarkable. No solid mass. No hydronephrosis. Stomach and bowel: Unremarkable. No obstruction. No mucosal thickening. PELVIS: Appendix: Normal appearing retrocecal appendix is identified on this exam. Bladder: Unremarkable. No mass. Reproductive: 2.4 x 4.1 cm complex cystic structure with multiple tubular area seen within the left adnexa with a small amount of left pelvic and left adnexal fluid. Stable appearance to 4.6 x 2.5 cm multiloculated right ovarian cyst. Interval improvement in trace pelvic fluid ABDOMEN and PELVIS: Intraperitoneal space: . No free air. Bones/joints: No acute fracture. No dislocation. Soft tissues: Unremarkable. Vasculature: Unremarkable. No abdominal aortic aneurysm. Lymph nodes: Unremarkable. No enlarged lymph nodes. IMPRESSION: Complex cystic structures within both adnexa. These are essentially stable when compared with the prior exam with interval reduction in overall amount of fluid within the dependent pelvis. Findings indeterminate pelvic ultrasound recommended for further evaluation. Electronically signed by: Bradford Ding MD 10/18/23 21:14 PM Chest X-Ray 10/18/23 20:30 XR chest 1V portable CLINICAL HISTORY: shortness of breath TECHNIQUE: Single frontal radiograph of the chest was obtained. Comparison: Comparison is made to chest radiograph 01/05/2023 FINDINGS: No lines and tubes are seen. The cardiomediastinal silhouette is normal. The lungs are clear. No evidence of pleural effusion or pneumothorax. IMPRESSION: No acute chest disease. ACT 112: Negative or not required by law. Electronically signed by: Godwin Paulino M.D. 10/19/2023 6:37 AM Pelvis Ultrasound 10/19/23 10:03 US pelvic complete CLINICAL HISTORY: lower abdominal pain, f/u CT TECHNIQUE: Real-time sonographic images of the pelvic contents were obtained with transabdominal and transvaginal technique. Comparison: Comparison is made to pelvic ultrasound 06/23/[address] abdomen pelvis 10/18/[address] abdomen pelvis 10/17/2023 FINDINGS: The uterus measures 10.9 x 4.2 x 6.4 cm. The endometrial cavity echo stripe measures 1.4 cm in thickness. Trace free fluid is seen in the endometrium. The right ovary measures 5.2 x 4.3 x 2.8 cm. The left ovary measures 5.1 x 2.8 x 1.5 cm. Bilateral flow is seen in the ovaries. There is a complex elongated structure in the left adnexa compatible with dilated serpiginous fallopian tube. Surrounding complex free fluid is seen. Of note, brownish discharge was seen at the time of exam. Patient had abdominal pain but no significant pelvic pain with the exam. IMPRESSION: Complex structure in the left adnexa with associated complex free fluid likely represents dilated fallopian tube. Of note, enhancing prominent left fallopian tube is seen in prior CT abdomen pelvis. Findings may represent salpingitis,/pelvic inflammatory disease. No definite drainable fluid collection is seen. ACT 112: Negative or not required by law. Electronically signed by: Godwin Paulino M.D. 10/19/2023 12:18 PM Transvaginal US 10/19/23 10:03 US pelvic complete CLINICAL HISTORY: lower abdominal pain, f/u CT TECHNIQUE: Real-time sonographic images of the pelvic contents were obtained with transabdominal and transvaginal technique. Comparison: Comparison is made to pelvic ultrasound 06/23/[address] abdomen pelvis 10/18/[address] abdomen pelvis 10/17/2023 FINDINGS: The uterus measures 10.9 x 4.2 x 6.4 cm. The endometrial cavity echo stripe measures 1.4 cm in thickness. Trace free fluid is seen in the endometrium. The right ovary measures 5.2 x 4.3 x 2.8 cm. The left ovary measures 5.1 x 2.8 x 1.5 cm. Bilateral flow is seen in the ovaries. There is a complex elongated structure in the left adnexa compatible with dilated serpiginous fallopian tube. Surrounding complex free fluid is seen. Of note, brownish discharge was seen at the time of exam. Patient had abdominal pain but no significant pelvic pain with the exam. IMPRESSION: Complex structure in the left adnexa with associated complex free fluid likely represents dilated fallopian tube. Of note, enhancing prominent left fallopian tube is seen in prior CT abdomen pelvis. Findings may represent salpingitis,/pelvic inflammatory disease. No definite drainable fluid collection is seen. ACT 112: Negative or not required by law. Electronically signed by: Godwin Paulino M.D. 10/19/2023 12:18 PM KUB X-Ray 10/19/23 10:33 XR KUB/Abdomen 1 view CLINICAL HISTORY: f/u constipation TECHNIQUE: 1 view of the abdomen was obtained. Comparison: Comparison is made to abdomen radiograph 09/18/2023 FINDINGS: Lung bases are unremarkable. The osseous structures are grossly unremarkable. The bowel gas pattern is nonobstructive. Small stool burden is seen. IMPRESSION: Nonobstructive bowel gas pattern. ACT 112: Negative or not required by law. Electronically signed by: Godwin Paulino M.D. 10/19/2023 12:00 PM
[2023-10-19] MEDS ORDERED: DOCUSATE SODIUM/SENNA 50/8.6MG TAB PO SCH (09:00)
[2023-10-19] MEDS: DOCUSATE SODIUM/SENNA 50/8.6MG TAB PO SCH (09:45)
[2023-10-19] MEDS: KETOROLAC TROMETHAMINE 15 MG/ML VIAL IV PRN (09:48)
--- NOTE | 2023-10-19 12:01 | XRay Report ---
XR KUB/Abdomen 1 view CLINICAL HISTORY: f/u constipation TECHNIQUE: 1 view of the abdomen was obtained. Comparison: Comparison is made to abdomen radiograph 09/18/2023 FINDINGS: Lung bases are unremarkable. The osseous structures are grossly unremarkable. The bowel gas pattern i s nonobstructive. Small stool burden is seen. IMPRESSION: Nonobstructive bowel gas pattern. ACT 112: Negative or not required by law. Electronically signed by: Godwin Paulino M.D. 10/19/2023 12:00 PM
--- NOTE | 2023-10-19 12:19 | Ultrasound Report ---
US pelvic complete CLINICAL HISTORY: lower abdominal pain, f/u CT TECHNIQUE: Real-time sonographic images of the pelvic contents were obtained with transabdominal and transvaginal technique. Comparison: Comparison is made to pelvic ultrasound 06/23/[address] abdomen pelvis 10/18/[address] abdomen pelvis 10/17/2023 FINDINGS: The uterus measures 10.9 x 4.2 x 6.4 cm. The endometrial cavity echo stripe measures 1.4 cm in thickn ess. Trace free fluid is seen in the endometrium. The right ovary measures 5.2 x 4.3 x 2.8 cm. The left ovary measures 5.1 x 2.8 x 1.5 cm. Bilateral fl ow is seen in the ovaries. There is a complex elongated structure in the left adnexa compatible with dilated serpiginous fallopian tube. Surrounding complex free fluid is seen. Of note, brownish discharge was seen at the time of exam. Patient had abdominal pain but no significa nt pelvic pain with the exam. IMPRESSION: Complex structure in the left adnexa with associated complex free fluid likely represents dilated fal lopian tube. Of note, enhancing prominent left fallopian tube is seen in prior CT abdomen pelvis. Fin dings may represent salpingitis,/pelvic inflammatory disease. No definite drainable fluid collection is seen. ACT 112: Negative or not required by law. Electronically signed by: Godwin Paulino M.D. 10/19/2023 12:18 PM
[2023-10-19] MEDS: CIPROFLOXACIN / D5W 400 MG/200 ML BAG IV SCH (12:33)
[2023-10-19] MEDS: POLYETHYLENE (MIRALAX) 17 GM PACK PO SCH (12:42)
[2023-10-19 13:57] LABS: Pregnancy Test, Urine Negative (Negative)
[2023-10-19] MEDS: metroNIDAZOLE 500 MG/100 ML BAG IV SCH (13:58)
--- NOTE | 2023-10-19 15:40 | Consultation ---
Date of Consultation October 19, 2023 Assessment & Plan (1) Urinary tract infection due to extended-spectrum beta lactamase (ESBL) producing Escherichia coli: Continue IV antibiotics Cultures pending repeat ultrasound in 1-2 months NSAID's for pain will need training development specialist follow up after discharge (2) Salpingitis: (3) Pelvic inflammatory disease: (4) Abdominal pain: History of Present Illness Requesting Physician: Dr. Schaefer Reason for Consultation: abdominal pain Attending Physician: Mary Schaefer MD History of Present Illness 28 F [id number] LMP 09/30/23 lasting about 5 days c/o bilateral lower abdominal pain and pelvic discomfort. She was seen 2 days ago in the ER and treated for UTI and sent home. The pain she has has been present for at least 3 years. She is currently having some nausea but is tolerating a regular diet. She has not had a BM in almost a week. She also has a history of anxiety. Last year had an HSG showing that her left tube was blocked. Allergies Allergy/AdvReac Type Severity Reaction Status Date / Time capsuled medicine AdvReac Intermediate UPSETS Uncoded 10/17/23 01:03 STOMACH Home Medications Medication Instructions Recorded Confirmed Type acetaminophen 500 mg tablet 500 - 1,000 mg PO Q6H PRN Pain 10/17/23 10/18/23 History (Tylenol Extra Strength) cefdinir 300 mg capsule 300 mg PO BID 5 days #10 caps 10/17/23 10/18/23 Rx oxycodone 5 mg tablet 0 mg PO DIRECTED PRN Pain 10/18/23 10/18/23 History Patient History Medical History Infected tooth Miscarriage Depression Surgical History H/O section x3 Family History Father Myocardial infarction Mother Stomach pain FH: mental illness Denies family history of Ovarian cancer Prostate cancer Breast cancer Colorectal cancer Social History Smoking Status: Never smoker Second Hand Exposure: No; Do You Dip or Chew Tobacco: No; Hx Alcohol Use: No Hx Substance Use: No Preferred Language: Other Communication Ability: Effective Communication Ability Comment: cousin helps translate if needed over the phone Communication Tools: IPad Hand Clipper Required: No Beliefs That Will Affect Care: None marital status: Current Living Situation: Family Current Living Situation Comment: x4 children current occupational status: unemployed Feels Safe at Home: Yes Safety Concerns: Feels Safe At This Time Diet: regular caffeine: Yes Dental Care, Regularly: No Seatbelt Use: always Sunscreen Use: No Gender Identity: Female Assistive Devices: None Review of Systems Review of Systems: All systems reviewed & are unremarkable except as noted in HPI & below Physical Exam Constitutional: WD/WN, vitals as above Eyes: PERRL, conjunctivae normal, anicteric sclerae Respiratory: normal respiratory effort, lungs clear to auscultation Cardiovascular: Rate/Rhythm: regular rate and regular rhythm Gastrointestinal (Abdomen): Inspection/Auscultation: abdomen normal to inspection abdomen soft. No mass. No rebound or guarding. Musculoskeletal: Extremities: extremities normal to inspection Skin: no rashes, warm and dry Neurologic: patellar DTR's 2+ bilat, sensation intact Psychiatric: A+Ox3, euthymic affect Genitourinary: Cultures done by nurse refused pelvic exam Results & Data Vital Signs (Past 12 Hours) Vital Signs Temp Pulse Pulse Resp BP BP Pulse Ox 10/19/23 14:41 36.5 C 93 H 16 103/68 100 10/19/23 13:06 36.8 C 77 18 128/84 100 10/19/23 07:45 36.5 C 72 13 108/72 98 10/19/23 07:01 36.5 C 84 16 115/76 98 O2 Del Method 10/19/23 14:41 Room Air 10/19/23 13:06 Room Air 10/19/23 07:45 Room Air 10/19/23 07:01 Room Air Laboratory Results Laboratory Results - last 72 hr 10/18/23 10/18/23 10/18/23 18:20 18:27 18:56 WBC 9.35 RBC 4.87 Hgb 10.8 L Hct 35.8 L MCV 73.5 L MCH 22.2 L MCHC 30.2 L RDW Std Deviation 45.1 RDW Coeff of Sheree 17.0 H Plt Count 225 MPV 9.0 L Immature Gran % (Auto) 0.4 Neut % (Auto) 84.9 Lymph % (Auto) 8.1 [place] % (Auto) 6.4 Eos % (Auto) 0.1 Baso % (Auto) 0.1 Neut # (Auto) 7.93 H Lymph # (Auto) 0.76 L [place] # (Auto) 0.60 H Eos # (Auto) 0.01 Baso # (Auto) 0.01 Immature Gran # (Auto) 0.04 PT 12.3 H INR 1.1 Sodium 134 L Potassium 3.4 L Chloride 103 Carbon Dioxide 24 Anion Gap 7 BUN 7 Creatinine 0.64 Est Cr Clr Drug Dosing 133.9 Est GFR ( Amer) 138.8 Est GFR (Non-Af Amer) 119.7 BUN/Creatinine Ratio 10.9 Glucose 110 H Estimat Average Glucose 117 Hemoglobin A1c 5.7 H Lactate 1.4 Calcium 9.4 Magnesium 1.8 Total Bilirubin 0.9 D AST 12 L ALT 6 L Alkaline Phosphatase 102 Troponin I High Sens < 2.3 Total Protein 7.6 Albumin 4.3 Globulin 3.3 Albumin/Globulin Ratio 1.3 Lipase 3 L HCG, Qual Negative Urine Color Yellow Urine Appearance Cloudy A Urine pH 6.5 Ur Specific [place] 1.018 Urine Protein Trace H Urine Glucose (UA) Negative Urine Ketones Trace H Urine Blood Negative Urine Nitrite Negative Urine Bilirubin Negative Urine Urobilinogen Negative Ur Leukocyte Esterase 2+ H Urine WBC (Auto) 11-20 H Urine RBC (Auto) 3-5 H U Hyaline Cast (Auto) 0-2 U Epithel Cells (Auto) 6-10 H Urine Bacteria (Auto) None Seen Urine Test 10/19/23 10/19/23 06:29 13:25 WBC 5.70 RBC 4.12 L Hgb 9.1 L Hct 30.8 L MCV 74.8 L MCH 22.1 L MCHC 29.5 L RDW Std Deviation 46.5 H RDW Coeff of Sheree 17.2 H Plt Count 203 MPV 9.2 L Immature Gran % (Auto) 0.2 Neut % (Auto) 69.1 Lymph % (Auto) 19.6 [place] % (Auto) 9.8 Eos % (Auto) 1.1 Baso % (Auto) 0.2 Neut # (Auto) 3.94 Lymph # (Auto) 1.12 L [place] # (Auto) 0.56 Eos # (Auto) 0.06 Baso # (Auto) 0.01 Immature Gran # (Auto) 0.01 PT INR Sodium 140 Potassium 3.8 Chloride 113 H Carbon Dioxide 23 Anion Gap 4 BUN 6 Creatinine 0.48 L Est Cr Clr Drug Dosing 183.3 Est GFR ( Amer) > 150.0 Est GFR (Non-Af Amer) 131.6 BUN/Creatinine Ratio 12.5 Glucose 90 Estimat Average Glucose Hemoglobin A1c Lactate Calcium 8.3 L Magnesium Total Bilirubin AST ALT Alkaline Phosphatase Troponin I High Sens Total Protein Albumin Globulin Albumin/Globulin Ratio Lipase HCG, Qual Urine Color Urine Appearance Urine pH Ur Specific [place] Urine Protein Urine Glucose (UA) Urine Ketones Urine Blood Urine Nitrite Urine Bilirubin Urine Urobilinogen Ur Leukocyte Esterase Urine WBC (Auto) Urine RBC (Auto) U Hyaline Cast (Auto) U Epithel Cells (Auto) Urine Bacteria (Auto) Urine Test Negative Diagnostic Findings pelvic ultrasound shows left fallopian tube is enlarge. Possible hydrosalpinx. (4) Abdominal pain Abdominal location: lower abdomen, unspecified Qualified Code(s): R10.30 - Lower abdominal pain, unspecified
[2023-10-19] MEDS: DOXYCYCLINE HYCLATE 100 MG in DEXTROSE 5% MINI-B 100 ML IV SCH (15:53)
[2023-10-19] MEDS ORDERED: cefTRIAXone SODIUM 2,000 MG/50 ML BAG IV SCH (21:00)
[2023-10-19] MEDS: SODIUM CHLORIDE 0.9% 1,000 ML IV ONE (21:14)
[2023-10-20 07:57] LABS: Basophils # (auto) 0.01 K/uL (0.00-0.20); Basophils % (auto) 0.2 %; Eosinophils # (auto) 0.09 K/uL (0.00-0.50); Eosinophils % (auto) 2.1 %; Hematocrit (blood only) 29.7 % (37.0-47.0); Hemoglobin 8.9 g/dl (12.0-16.0); Immature Granulocytes # (auto) 0.01 K/uL (0.01-0.20); Immature Granulocytes % (auto) 0.2 %; Lymphocytes # (auto) 1.35 K/uL (1.20-3.40); Lymphocytes % (auto) 31.3 %; Mean Corpuscular Volume 73.5 fL (80.0-100.0); Mean Platelet Volume 8.4 fL (9.4-12.4); Monocytes # (auto) 0.45 K/uL (0.11-0.59); Monocytes % (auto) 10.4 %; Neutrophils % (auto) 55.8 %; Platelet Count 192 K/uL (130-400); RDW Coefficient of Variation 17.3 % (11.5-14.5); RDW Standard Deviation 46.2 fL (36.4-46.3); Red Blood Count 4.04 M/uL (4.20-5.40); White Blood Count 4.31 K/ul (4.8-10.8)
[2023-10-20 08:22] LABS: Anion Gap 6 (3-11); BUN Creatinine Ratio 15.2 (10-20); Blood Urea Nitrogen 7 mg/dl (6-23); Calcium 8.3 mg/dl (8.6-10.3); Carbon Dioxide 24 mmol/L (21-32); Chloride 111 mmol/L (98-107); Creatinine Clr Calc Pharmacy 191.2 ml/min; Est GFR (African American) > 150.0 ml/min; Est GFR (Non-African American) 133.5 ml/min; Glucose 86 mg/dl (70-99(Fasting)); Iron 19 mcg/dl (35-150); Potassium 3.6 mmol/L (3.5-5.1); Sodium 141 mmol/L (136-145); Total Iron Binding Cap Calc 292 mcg/dl (250-450); Transferrin (FE) Percent Satur 7 % (15-50); Unsaturated Iron Binding Cap 273 mcg/dl (155-355)
[2023-10-20 08:41] LABS: Ferritin 39.4 ng/ml (8-388)
[2023-10-20 08:49] LABS: Folate (Folic Acid),Ser orPlas 8.16 ng/ml (>5.38)
[2023-10-20] MEDS: IRON SUCROSE 200 MG in 0.9 % SODIUM CHLORIDE 100 ML IV ONE (11:12)
--- NOTE | 2023-10-20 13:52 | Hospitalist Progress Note ---
Date of Service October 20, 2023 Assessment & Plan (1) Pelvic inflammatory disease: (2) Salpingitis: (3) Urinary tract infection due to extended-spectrum beta lactamase (ESBL) producing Escherichia coli: Plan Pt is a 28yoF with PMHx significant for chronic anemia (baseline hemoglobin 10- 11), anxiety disorder presenting once more with concern for lower abdominal pain. Pelvic Inflammatory Disease Salpingitis Complicated UTI Obstipation Pt presented with lower abdominal pain initially on 10/16, was seen in the ED, treated for a UTI and discharged with po cefdinir Urine Cx from that time grew ESBL E coli sensitive to IV ertapenem, zosyn and ciprofloxacin but resistant to rocephin Presenting once more with N/V, persistent dysuria, lower abdominal pain UA this admission suggestive of infection, repeat urine Cx pending CT abd/pelvis from 10/16- unremarkable KUB 10/17- noting mild to moderate fecal retention, repeat after multiple BMs on 10/18 noting small stool burden CT abd/pelvis from 10/17 noting L adnexa complex cystic structure and stable R ovarian cyst. Recommending f/u pelvic US Pelvic US ordered-notes left dilated fallopian tube, findings suggestive of salpingitis/pelvic inflammatory disease Urine test NEGATIVE IV flagyl and doxycycline added to IV ciprofloxacin for PID/ESBL UTI treatment- continue IV abx for at least 48hrs KETTLE COOK consulted, appreciate recs -Continue IV antibiotics -Cultures pending -repeat ultrasound in 1-2 months -NSAID's for pain -will need inward toll operator follow up after discharge Infectious Disease consulted for further recs ESBL UTI- Recomemnd treating with ciprofloxacin is no contra-indications such as QT prolongation or AAA Pelvic inflammatory disease: Plan is for treatment with doxycycline and flagyl for 14 days Bowel regimen with daily Senokot and scheduled Miralax for constipation- discontinued as improved Pain control Continue to monitor Hypokalemia K low on admission Replete as needed Chronic Microcytic anemia iron Deficiency anemia hgb dropped from 11.5 on 10/16 to 9.1 on admission MCV in the 70s AM anemia panel to rule out iron deficiency anemia -iron deficiency noted -s/p IV Venofer on 10/19 Supplement as needed Continue to monitor H/H Prediabetes Hgba1c of 5.7 PCP followup Anxiety Anxiolytic prn Diet: Clears, advance as tolerated DVT prophylaxis. SCDs Dispo: Home once medically stable Admission and Anticipated Discharge Date Admission Date: October 20, 2023 Subjective pt was seen multiple times during the day. History obtained using [facility] IPAD concrete sculptor service for language [place]. Nursing initially present as well and later pt's partner. Pt states that she feels like the providers she has seen did not care about her and treated her with pain meds and sent her home. She states she is aware that she had a blocked fallopian tube but was not aware of an infection. She reports that she does have children with a prior but has been unsuccessful trying to get with current partner. appears to be following with fertility services. she is agreeable to antibiotic treatment. Review of Systems Review of Systems: All systems reviewed & are unremarkable except as noted in Subjective Physical Exam Physical Exam: General: Alert, oriented. No acute distress Psych: Appropriate mood and affect Neuro: No gross deficits HEENT: NC/AT CV: RRR Resp: Breath sounds clear bilaterally, no increased effort of breathing. Abdomen: soft, diffusely tender but more painful in lower abdomen Extremities: No edema in lower extremities bilaterally. Results & Data Results & Data Vital Signs (Past 12 Hours) Vital Signs Temp Pulse Resp BP BP Pulse Ox O2 Del Method 10/20/23 11:20 36.7 C 96 H 18 122/85 99 Room Air 10/20/23 09:40 82 20 147/85 H 95 Room Air 10/20/23 06:56 36.6 C 81 16 116/76 99 Room Air
[2023-10-20] MEDS: FLUCONAZOLE 50 MG TAB PO ONE (15:24)
--- NOTE | 2023-10-20 16:24 | Infectious Disease Consult ---
Date of Service October 20, 2023 Telehealth Information I performed this visit using a real-time telehealth connection between my location and the patients location ([facility]). After connecting through interactive tele-video, patient was identified by name and date of and/or wristband check.Patient (or authorized healthcare sales representative advertising) was informed that this was a telemedicine visit and it was being conducted confidentially over secure lines. My office door was closed and no one else was present in the room with me.Patient (or authorized healthcare sales representative advertising) provided consent to proceed with the visit, expressed an understanding of privacy and security of the telemedicine visit, and gave permission to have a hospital sales representative advertising in the room in order to assist with the visit and to conduct portions of the visit, as needed. I informed the patient (or authorized healthcare sales representative advertising) that I reviewed their record and presented the opportunity for them to ask any questions regarding the visit today. The patient agreed to participate. Assessment & Plan (1) Urinary tract infection due to extended-spectrum beta lactamase (ESBL) producing Escherichia coli: Plan: Recomemnd treating with ciprofloxacin is no contra-indications such as QT prolongation or AAA (2) Pelvic inflammatory disease: Plan: Plan is for treatment with doxycycline and flagyl for 14 days (3) Salpingitis: Plan: On doxy and flagyl Plan Patient who presented with lower abdominal and flank pain and was found to have ESBL E Coli UTI PID and salpingitis and is currently on ciprofloxacin ,doxycycline and flagyl .Would recommend continuing this regimen for a total of 14 days .Thank you for allowing us to participate in the care of this patient ID will sign off History of Present Illness History of Present Illness 28 y/o F PMHx of recurrent cystitis ,chronic anaemia presented with lower abdominal and back pain.nausea,vomiting and fever .Patient was evaluated in the ER and treated for a UTI with cefdinir .Her symptoms did not improve and she returned to the ER wher her urine culture had grown ESBLE Coli and she was started on ciprofloxacin .CT abd/pelvis from 10/17 concerning for L adnexa complex cystic structure and stable R ovarian cyst. Pelvic US revealed left dilated fallopian tube, findings suggestive of salpingitis/pelvic inflammatory disease and doxycycline and flagyl were added when her genital specimen grew gardnerella . History was taken with the assistance of her relative who acted as an administrator for her Allergies Allergy/AdvReac Type Severity Reaction Status Date / Time capsuled medicine AdvReac Intermediate UPSETS Uncoded 10/17/23 01:03 STOMACH Home Medications Medication Instructions Recorded Confirmed Type acetaminophen 500 mg tablet 500 - 1,000 mg PO Q6H PRN Pain 10/17/23 10/18/23 History (Tylenol Extra Strength) cefdinir 300 mg capsule 300 mg PO BID 5 days #10 caps 10/17/23 10/18/23 Rx oxycodone 5 mg tablet 0 mg PO DIRECTED PRN Pain 10/18/23 10/18/23 History Patient History Medical History Infected tooth Miscarriage Depression Surgical History H/O section x3 Family History Father Myocardial infarction Mother Stomach pain FH: mental illness Denies family history of Ovarian cancer Prostate cancer Breast cancer Colorectal cancer Social History Smoking Status: Never smoker Second Hand Exposure: No; Do You Dip or Chew Tobacco: No; Hx Alcohol Use: No Hx Substance Use: No Preferred Language: Other Communication Ability: Effective Communication Ability Comment: cousin helps translate if needed over the phone Communication Tools: IPad Industrial Designer Required: No Beliefs That Will Affect Care: None marital status: Current Living Situation: Family Current Living Situation Comment: x4 children current occupational status: unemployed Feels Safe at Home: Yes Safety Concerns: Feels Safe At This Time Diet: regular caffeine: Yes Dental Care, Regularly: No Seatbelt Use: always Sunscreen Use: No Gender Identity: Female Assistive Devices: None Review of Systems lower abdominal pain Physical Exam awake alert oriented no respiratory or painful distress Results & Data Vital Signs (Past 12 Hours) Vital Signs Temp Pulse Resp BP BP Pulse Ox O2 Del Method 10/20/23 15:11 83 16 125/52 L 98 Room Air 10/20/23 11:20 36.7 C 96 H 18 122/85 99 Room Air 10/20/23 09:40 82 20 147/85 H 95 Room Air 10/20/23 06:56 36.6 C 81 16 116/76 99 Room Air Laboratory Results ESBL E col RX M.I.C. --- --------- Amox/Clav S <=8/4 Ampicillin R >16 Amp/Sul I 16/8 Cefazolin R >16 Cefepime R >16 Cefotaxime R >16 Ceftriaxone R >2 Ciprofloxacin S <=0.25 Ertapenem S <=0.5 Gentamicin S <=4 Levofloxacin S <=0.5 Meropenem S <=1 Nitrofurantoin S <=32 Tobramycin S <=4 Trimeth/Sulfa R >2/38 Pip/Tazo S <=16 S = SENSITIVE I = INTERMEDIATE R = RESISTANT Genital Culture Female Final 10/21/21-7210 Organism 1 Gardnerella vaginalis Quantity Few Sens No Sensitivities to Follow Normal Katherine Moderate Normal Katherine Diagnostic Findings Complex cystic structures within both adnexa. These are essentially stable when compared with the prior exam with interval reduction in overall amount of fluid within the dependent pelvis. Findings indeterminate pelvic ultrasound recommended for further evaluation.
[2023-10-20] MEDS: SIMETHICONE 80 MG CHEW PO ONE (23:10)
[2023-10-21 08:08] LABS: Basophils # (auto) 0.01 K/uL (0.00-0.20); Basophils % (auto) 0.2 %; Eosinophils # (auto) 0.07 K/uL (0.00-0.50); Eosinophils % (auto) 1.5 %; Hematocrit (blood only) 33.4 % (37.0-47.0); Hemoglobin 10.1 g/dl (12.0-16.0); Immature Granulocytes # (auto) 0.02 K/uL (0.01-0.20); Immature Granulocytes % (auto) 0.4 %; Lymphocytes # (auto) 1.04 K/uL (1.20-3.40); Lymphocytes % (auto) 21.9 %; Mean Corpuscular Hemoglobin 22.1 pg (25.0-34.0); Mean Corpuscular Hgb Conc 30.2 g/dL (32.0-36.0); Mean Corpuscular Volume 73.1 fL (80.0-100.0); Mean Platelet Volume 9.2 fL (9.4-12.4); Monocytes # (auto) 0.49 K/uL (0.11-0.59); Monocytes % (auto) 10.3 %; Neutrophils # (auto) 3.11 K/uL (1.40-6.50); Neutrophils % (auto) 65.7 %; Platelet Count 269 K/uL (130-400); RDW Coefficient of Variation 17.3 % (11.5-14.5); RDW Standard Deviation 45.9 fL (36.4-46.3); Red Blood Count 4.57 M/uL (4.20-5.40); White Blood Count 4.74 K/ul (4.8-10.8)
[2023-10-21 08:30] LABS: BUN Creatinine Ratio 15.1 (10-20); Calcium 8.9 mg/dl (8.6-10.3); Est GFR (African American) 147.7 ml/min; Est GFR (Non-African American) 127.4 ml/min; Potassium 3.8 mmol/L (3.5-5.1)
[2023-10-21] MEDS: ACETAMINOPHEN 325 MG TAB PO PRN (08:32)
[2023-10-21] MEDS: POLYETHYLENE (MIRALAX) 17 GM PACK PO PRN (08:33)
[2023-10-21] MEDS: PANTOprazole 40 MG TAB PO SCH (11:00)
--- NOTE | 2023-10-21 18:22 | Discharge Summary ---
Discharge Summary Date of Service October 21, 2023 Principal Dx & Hospital Course #1 = Principal Diagnosis (1) Pelvic inflammatory disease: (2) Salpingitis: (3) Urinary tract infection due to extended-spectrum beta lactamase (ESBL) producing Escherichia coli: Plan Pt is a 28yoF with PMHx significant for chronic anemia (baseline hemoglobin 10- 11), anxiety disorder presenting once more with concern for lower abdominal pain. Ultrasound concerning for PID. Patient started on IV antibitoics and discharged with 14 day course of flagyl, doxy, as well as cipro iso ESBL UTI. On day of discharge, patient recommended to follow up with OBGYN for imaging in 1-2 months, as well as recommended to avoid intercourse until completion of abx. Discussed with Dr. Yanes over tiger, who did not recommend any needed treatment for spouse. Pelvic Inflammatory Disease Salpingitis Complicated UTI Obstipation Pt presented with lower abdominal pain initially on 10/16, was seen in the ED, treated for a UTI and discharged with po cefdinir Urine Cx from that time grew ESBL E coli sensitive to IV ertapenem, zosyn and ciprofloxacin but resistant to rocephin Presenting once more with N/V, persistent dysuria, lower abdominal pain UA this admission suggestive of infection, repeat urine Cx pending CT abd/pelvis from 10/16- unremarkable KUB 10/17- noting mild to moderate fecal retention, repeat after multiple BMs on 10/18 noting small stool burden CT abd/pelvis from 10/17 noting L adnexa complex cystic structure and stable R ovarian cyst. Recommending f/u pelvic US Pelvic US ordered-notes left dilated fallopian tube, findings suggestive of salpingitis/pelvic inflammatory disease Urine test NEGATIVE IV flagyl and doxycycline added to IV ciprofloxacin for PID/ESBL UTI treatment- continue IV abx for at least 48hrs SAUSAGE LINKER consulted, appreciate recs -Continue IV antibiotics -Cultures pending -repeat ultrasound in 1-2 months -NSAID's for pain -will need numerical control machine machinist follow up after discharge Infectious Disease consulted for further recs ESBL UTI- Recomemnd treating with ciprofloxacin is no contra-indications such as QT prolongation or AAA Pelvic inflammatory disease: Plan is for treatment with doxycycline and flagyl for 14 days, as well as cipro 500mg bid r Hypokalemia K low on admission Replete as needed Chronic Microcytic anemia iron Deficiency anemia hgb dropped from 11.5 on 10/16 to 9.1 on admission MCV in the 70s AM anemia panel to rule out iron deficiency anemia -iron deficiency noted -s/p IV Venofer on 10/19 PCP follow up Prediabetes Hgba1c of 5.7 PCP followup Notes For Next Care Provider Patient with concerns of painful menses and bloating, discussed close follow up. Consider endometriosis given hx if abx dont relief symptoms Patient verbalized understanding Medication Changes From Visit Doxycyline 100mg BID Cipofloxacin 500mg bid Flagyl 500mg q8h Pantoprazole daily Admission HPI Per Admitting Provider History obtained from patient, family, and records. History somewhat limited from patient secondary to language barrier. Medical history significant for chronic anemia (baseline hemoglobin 10-11), anxiety disorder. 5 days ago, patient noted achy lower abdominal pain. No BM for more than a week as per patient which is unusual for her. Patient seen at the ER 2 days ago. Patient prescribed cefdinir for possible UTI. Worsening discomfort at home with nausea and emesis despite compliance with antibiotic. Persistent dysuria symptoms without hematuria. Chest pain and SOB attributed to abdominal pain as per patient Some chills. Patient returned to ER for evaluation. Medical History as above Surgical History : section Family History : DM Personal/Social history : Non-smoker, no EtOH intake, homemaker Admission Exam Per Admitting Provider Physical Exam: GENERAL: Comfortable, Slightly anxious,no respiratory distress SKIN: Pallor, warm HEENT: Pale palpebral conjunctivae, no ptosis, dry buccal mucosa NECK : Supple, no tenderness CHEST : CTA, no tenderness HEART : RRR, no obvious murmurs ABDOMEN: Some distention, hypogastric tenderness EXTREMITIES : No LE swelling/tenderness, no other conspicuous deformities noted NEUROLOGIC : Coherent, no facial asymmetry, no other gross focality Updated Medication List Medication Instructions Recorded Confirmed Type oxycodone 5 mg tablet 0 mg PO DIRECTED PRN Pain 10/18/23 10/18/23 History ciprofloxacin HCl 500 mg tablet 500 mg PO BID #26 tabs 10/21/23 Rx doxycycline hyclate 100 mg capsule 100 mg PO BID 13 days #26 caps 10/21/23 Rx metronidazole 500 mg tablet 500 mg PO Q8H 13 days #39 tabs 10/21/23 Rx pantoprazole 40 mg tablet,delayed 40 mg PO QAM #30 tabs 10/21/23 Rx release sennosides 8.6 mg-docusate sodium 1 tab PO DAILY #30 tabs 10/21/23 Rx 50 mg tablet (Senokot-S) Hospital Stay Data Consultations 10/18/23 21:46 ED Decision to Admit Stat 10/19/23 12:35 Consult Gynecology Routine 10/19/23 13:01 Consult Infectious Diseases Routine Diagnostic Imagining Performed 10/18/23 20:30 CT Abd and Pelvis [CT abd pelvis IV con only] Stat 10/19/23 10:03 US Pelvis [US pelvic complete] Urgent US transvaginal Urgent Pending Results Patient Have Any Pending Studies at Discharge: No Discharge Instructions Given to Patient (Per Discharging Provider) You were admitted for abdominal pain and found to have pelvic inflammatory disease as well as a urinary tract infection. You will complete the following antibiotics: Ciprofloxacin 500mg two times a day Doxycycline 100mg two times a day Metronidazole 500mg three times a day Please avoid intercourse until completed all the above medications. Please take tylenol 650mg every 4-6 hours for pain. Please follow up with your OBGYN and plan for imaging in 2 months. Total Time Total Time Spent Total Time Spent (In Minutes): 35
== END 2023-10-21 12:30 | disposition home or self-care (01) | DRG 758 ==
LOC: ED 18:06 → 3W 18:06 → SUATTDRO 10-20 09:36